=== PATIENT | female | born 1950 | race Caucasian/White ===

== ENCOUNTER 2018-04-08 01:20 | Emergency (ER) | payer MEDICARE ==
--- NOTE | 2018-04-08 01:29 | ER Report ---
History and Physical Time Seen By MD: 01:26 HPI/ROS CHIEF COMPLAINT: Foreign body, right ring finger HISTORY OF PRESENT ILLNESS: 67-year-old female presents ambulatory to the ER with infection and swelling in her right ring finger. 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 She thinks she removed a portion of the splinter, but it now has. Become infected tonight. It 's been throbbing. She's been unable to sleep and presents to the ER for evaluation. Allergies: Coded Allergies: Penicillins (Verified Allergy, Mild, 04/08/18) ciprofloxacin (Verified Allergy, Mild, 04/08/18) shoulder pain Home Meds Active Scripts Cephalexin Monohydrate (CEPHALEXIN) 500 Mg Cap, 500 MG PO TID for infection, # 20 CAP TAKE 1 CAPSULE BY MOUTH EVERY SIX HOURS Prov:JAMAL ZAMBRANO DO 04/08/18 Constitutional Vital Sign - Last 24 Hours 04/08/18 04/08/18 01:24 02:11 Temp 98.2 Pulse 80 68 Resp 16 B/P (MAP) 113/66 115/72 (86) Pulse Ox 95 O2 Delivery Room Air Physical Exam General appearance: Alert no distress. Respiratory: Chest is non tender, lungs are clear to auscultation. Cardiac: Regular rate and rhythm Extremities: Examination of the right hand reveals a neurovascularly intact hand and the proximal aspect of the right ring finger has a pustule and a large area of erythema. There is no visible foreign body. DIFFERENTIAL DIAGNOSIS: After history and physical exam differential diagnosis was considered for cellulitis, foreign body, abscess. Medical Decision Making ED Course/Re-evaluation ED Course Patient was admitted to an examination room. H&P was done. The differential diagnoses was considered. Risks and benefits of incision and drainage work discussed with the patient. There will be an exploration for a foreign body. Patient had a local block performed with Marcaine 0.5% and lidocaine 1%. The wound was prepped with Betadine. A small incision was made with a #11 scalpel blade. Exploration was performed with a forceps no obvious foreign body was palpated or retrieved. There was significant purulent bloody drainage from the site. The wound will be left open. Patient's advised to continue hot soaks and she'll be placed on Keflex for treatment of infection. She is advised to follow-up with primary care if unimproved in 3-5 days. Decision to Disposition Date: Apr 08, 2018 Decision to Disposition Time: 01:58 Depart Departure Latest Vital Signs Vital Signs Date Time Temp Pulse Resp B/P (MAP) Pulse Ox O2 Delivery O2 Flow Rate FiO2 04/08/18 02:11 68 115/72 (86) 04/08/18 01:24 98.2 16 95 Room Air Impression: Primary Impression: Foreign body of right ring finger Additional Impression: Foreign body of right ring finger with infection Condition: Improved Disposition: HOME OR SELF-CARE New Scripts Cephalexin Monohydrate (CEPHALEXIN) 500 Mg Cap 500 MG PO TID for infection, #20 CAP TAKE 1 CAPSULE BY MOUTH EVERY SIX HOURS Prov: JAMAL ZAMBRANO DO 04/08/18 Patient Instructions: Cellulitis (ED), Soft Tissue Foreign Body (ED) Additional Instructions: perform warm to hot soaks of your ring finger Perform daily dressing changes Follow-up with your primary care if unimproved in 3-5 days. Problem Qualifiers JAMAL ZAMBRANO DO Apr 08, 2018 01:29
[2018-04-08] MEDS ORDERED: CEPH500C24 PO (02:00)
[2018-04-08] MEDS ORDERED: CEPHALEXIN MONO 500 MG CAP PO ONE (02:05)
[2018-04-08 02:11] VITALS: BP 115/72
== END 2018-04-08 02:10 | disposition home or self-care (01) ==
LOC: ER 01:52
DX: M79.5 Residual foreign body in soft tissue (principal)
CPT/HCPCS: 10060; 99283; A9270